=== PATIENT | female | born 2000 | race Two or more races ===

== ENCOUNTER 2024-11-29 14:34 | Emergency (ER) | payer OTHER ==
[~2024-11-29] VITALS: Ht 167.6 cm; Wt 65.8 kg
[2024-11-29] MEDS ORDERED: ONDANSETRON 4 MG TAB.RAPDIS ONE (14:57)
[2024-11-29] MEDS: ONDANSETRON 4 MG TAB.RAPDIS SL ONE (14:58)
[2024-11-29] MEDS ORDERED: ONDA4TAB11 PO (17:31)
[2024-11-29 19:57] VITALS: BP 116/83; TEMP 98; O2SAT 97
== END 2024-11-29 19:58 ==
LOC: ER 14:40
DX: R11.2 Nausea with vomiting, unspecified (principal)
CPT/HCPCS: 99283; Q0162